=== PATIENT | female | born 1970 | race Caucasian/White ===

== ENCOUNTER 2019-08-07 12:14 | Emergency (ER) | payer OTHER, MEDICARE ==
[~2019-08-07] VITALS: Ht 160 cm; Wt 66.7 kg
[2019-08-07] MEDS ORDERED: SERTRALINE HCL100 MG PO (12:33)
[2019-08-07] MEDS ORDERED: OXYBUTYNIN 5 MG5 M2 PO (12:34)
[2019-08-07] MEDS ORDERED: LIPITOR40 MG PO (12:34)
[2019-08-07 13:12] LABS: ABSOLUTE EOSINOPHILS 0.2 thou/uL (0.0-0.7); ABSOLUTE LYMPHOCYTES 1.4 thou/uL (0.8-5.3); ABSOLUTE MONOCYTES 0.5 thou/uL (0.0-1.2); ABSOLUTE NEUTROPHILS 3.9 thou/uL (1.6-8.1); BASOPHILS 0.5 %; HEMATOCRIT 38.6 % (37.0-47.0); HEMOGLOBIN 12.8 gm/dL (12.0-15.0); LYMPHOCYTES 22.6 %; MCH 28.7 pg (26.0-34.0); MCHC 33.3 g/dL (28.0-37.0); MCV 86.1 fL (80.0-100.0); MONOCYTES 8.9 %; MPV 9.8 fl. (7.2-11.1); NUCLEATED RBCS 0 /100WBC; PLATELET COUNT* 229 thou/uL (150-400); RBC 4.48 mil/uL (4.20-5.00); RDW-CV 14.1 % (10.5-14.5)
[2019-08-07 13:20] LABS: CALCIUM 8.2 mg/dL (8.5-10.1); CREATININE 0.6 mg/dL (0.6-1.3)
[2019-08-07 13:25] LABS: ALBUMIN 3.4 g/dL (3.4-5.0); TOTAL BILIRUBIN 0.2 mg/dL (<0.1-1.0); TOTAL PROTEIN 6.8 g/dL (6.4-8.2)
[2019-08-07] MEDS ORDERED: CENTANY30 GM TOP (13:28)
[2019-08-07] MEDS ORDERED: DOXYCYCLINE 10100 MG PO (13:28)
[2019-08-07] MEDS ORDERED: BACTRIM DS TAB1 EACH PO (13:48)
[2019-08-07] MEDS ORDERED: KEFLEX500 M1 PO (13:48)
[2019-08-07 14:38] VITALS: BP 138/86
== END 2019-08-07 14:39 | disposition home or self-care (01) ==
LOC: M.ERS 12:14
PROVIDERS: Nurse Practitioner Family
DX: T81.49XA Infection following a procedure, other surgical site, initial encounter (principal); L03.116 Cellulitis of left lower limb; Z79.899 Other long term (current) drug therapy; Z88.1 Allergy status to other antibiotic agents

== ENCOUNTER 2020-08-21 09:16 | Emergency (ER) | payer OTHER, MEDICARE ==
[~2020-08-21] VITALS: Ht 162.6 cm; Wt 63.5 kg
[~2020-08-21 09:16] MED LIST: BACTRIM DS TAB1 EACH PO; CENTANY30 GM TOP; DOXYCYCLINE 10100 MG PO; KEFLEX500 M1 PO; LIPITOR40 MG PO; OXYBUTYNIN 5 MG5 M2 PO; SERTRALINE HCL100 MG PO
[2020-08-21] MEDS ORDERED: HYDROCODON-ACE1 EAC7 PO (10:15)
[2020-08-21 10:17] VITALS: BP 118/68
== END 2020-08-21 10:18 | disposition home or self-care (01) ==
LOC: M.ERS 09:16
DX: S62.644A Nondisplaced fracture of proximal phalanx of right ring finger, initial encounter for closed fracture (principal); Z86.73 Personal history of transient ischemic attack (TIA), and cerebral infarction without residual deficits; Z88.1 Allergy status to other antibiotic agents; Z79.899 Other long term (current) drug therapy; W22.8XXA Striking against or struck by other objects, initial encounter; Y93.89 Activity, other specified; Y92.89 Other specified places as the place of occurrence of the external cause; Y99.8 Other external cause status